=== PATIENT | female | born 1970 | race African-American/Black ===

== ENCOUNTER 2019-09-07 16:45 | Emergency (ER) | payer OTHER ==
[~2019-09-07] VITALS: Ht 167.6 cm; Wt 118.0 kg
[2019-09-07] MEDS ORDERED: MORPHINE SULFATE 4 MG/ML CPJ (NOT FOR IM USE) IV STA (17:35)
[2019-09-07] MEDS ORDERED: SODIUM CHLORIDE 0.9% 1,000 ML IV ONE (17:35)
[2019-09-07] MEDS ORDERED: ONDANSETRON HCL 4MG/2ML INJ IV STA (17:35)
[2019-09-07 19:25] LABS: CHLORIDE 112 mEq/L (98-107)
[2019-09-07 19:32] LABS: HCG SCREEN NEGATIVE
[2019-09-07 20:03] LABS: BASOPHILS % 0.7 % (0.0-2.0); EOSINOPHILS % 2.4 % (0.0-5.0); HEMOGLOBIN. 11.1 g/dL (12.0-16.0); LYMPHOCYTES % 33.2 % (20.0-50.0); MEAN CORPUSCULAR HEMOGLOBIN 27.2 pg (28.0-32.0); MONOCYTES % 5.2 % (2.0-8.0); NEUTROPHILS % 58.5 % (40.0-76.0); RED BLOOD CELL COUNT 4.09 mill/uL (4.2-5.4); RED CELL DISTRIBUTION WIDTH 18.9 % (11.6-14.6)
[2019-09-07 20:15] LABS: CLARITY URINE CLEAR (CLEAR); COLOR URINE YELLOW (YELLOW); KETONES URINE TRACE (NEGATIVE); LEUKOCYTE ESTERASE URINE NEGATIVE (NEGATIVE); NITRITE URINE NEGATIVE (NEGATIVE); OCCULT BLOOD URINE NEGATIVE (NEGATIVE); PH URINE 5.5 (4.5-8.0); PROTEIN URINE NEGATIVE (NEGATIVE); UROBILINOGEN URINE 0.2 E.U./dL (0.2-1.0)
[2019-09-07 20:56] LABS: MEAN PLATELET VOLUME 7.7 fl (7.4-10.4); PLATELET 360 x1000/uL (130-400)
[2019-09-07 20:57] LABS: PLATELET ESTIMATE NORMAL
[2019-09-07 21:06] VITALS: BP 146/85
== END 2019-09-07 21:42 | disposition home or self-care (01) ==
LOC: ER 16:45
DX: R10.0 Acute abdomen (principal); M89.8X8 Other specified disorders of bone, other site; F12.90 Cannabis use, unspecified, uncomplicated; I10 Essential (primary) hypertension; E11.9 Type 2 diabetes mellitus without complications; Z88.0 Allergy status to penicillin; Z88.5 Allergy status to narcotic agent; Z91.041 Radiographic dye allergy status; Z98.51 Tubal ligation status
CPT/HCPCS: 36415; 74176; 80053; 81003; 83690; 84703; 85025; 93005; 96374; 96375; 99284; J2270; J2405; J7030